=== PATIENT | male | born 1985 ===

== ENCOUNTER 2018-08-25 06:19 | Day surgery (SDC) | payer OTHER ==
[2018-08-25] VITALS (13 sets, daily range): BP systolic 96–121; BP diastolic 59–83
[~2018-08-25] VITALS: Ht 182.9 cm; Wt 77.0 kg
[~2018-08-25 06:19] MED LIST: ACET1TAB12 PO; DOCU-28 PO; ceFAZolin 2gm in dextrose, iso 100 ML IV ONE; famotidine 20mg tablet PO ONE; ringers solution, lacted 1,000 ML IV SCH
[2018-08-25] MEDS ORDERED: LIDOcaine 1% (10mg/ml) 2ml vial ONE (07:29)
[2018-08-25] MEDS ORDERED: ROPIVAcaine 0.5% (5mg/ml) 30ml vial ONE (09:02)
[2018-08-25] MEDS ORDERED: BUPIVAcaine/PF 7.5mg/ml (0.75%) 10ml vial ONE (09:02)
[2018-08-25] MEDS ORDERED: dexamethasone sod phosphate 10mg/ml inj ONE (09:03)
[2018-08-25] MEDS ORDERED: sevoflurane 250ml liquid IH ONE (09:03)
[2018-08-25] MEDS ORDERED: fentaNYL/PF 50MCG/1 ML 2ML syringe ONE (09:04)
[2018-08-25] MEDS ORDERED: propofol inj 20 ML IV ONE (09:23)
[2018-08-25] MEDS ORDERED: LIDOcaine 1%/PF 5ML 10 MG/ML VIAL ONE (09:23)
[2018-08-25] MEDS ORDERED: ondansetron/PF 4mg/2ml inj ONE (09:24)
[2018-08-25] MEDS ORDERED: morphine 4 MG/ML inj SYRINge IV PRN ×2 (09:40)
[2018-08-25] MEDS ORDERED: ringers solution, lacted 1,000 ML IV SCH (09:40)
[2018-08-25] MEDS ORDERED: hydrALAZINE 20mg/ml inj. IV PRN (09:40)
[2018-08-25] MEDS ORDERED: ondansetron/PF 4mg/2ml inj IV PRN (09:40)
[2018-08-25] MEDS ORDERED: meperidine/PF 25mg/ml syringe IV PRN ×2 (09:40)
[2018-08-25] MEDS ORDERED: labetalol 20mg/4ml (5mg/ml) syringe IV PRN (09:40)
[2018-08-25] MEDS ORDERED: ceFAZolin 1000mg inj ONE (10:05)
--- NOTE | 2018-08-25 11:19 | NUR ---
Received from OR via [facility], accompanied by Anesthesiologist DR DYER and report given by Anesthesiologist. 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 Addendum: 08/25/18 at 1145 by Smita Merrill RN Amended: Links added.
== END 2018-08-25 13:09 ==
LOC: PAS 06:19 → EEVIPCON 08:30 → PAS 13:09
PROVIDERS: ATTEND Orthopaedic Surgery
DX: S52.571A Other intraarticular fracture of lower end of right radius, initial encounter for closed fracture (principal); X58.XXXA Exposure to other specified factors, initial encounter; Y93.89 Activity, other specified; Y92.89 Other specified places as the place of occurrence of the external cause; Y99.8 Other external cause status
CPT/HCPCS: 25607; 82948; A6449; C1713; J0690; J1100; J2001; J2405; J2704; J3010; J3490; A7000; J2795; J7120